=== PATIENT | female | born 1965 | race Caucasian/White ===

== ENCOUNTER 2021-02-27 09:52 | Inpatient (IN) | payer OTHER, SELFPAY ==
[~2021-02-27] VITALS: Ht 154.9 cm; Wt 50.0 kg
[2021-02-27] VITALS (8 sets, daily range): BP systolic 73–111; BP diastolic 38–52
--- NOTE | 2021-02-27 09:52 | NUR ---
Dr. Cole at bedside evaluating patient.
--- NOTE | 2021-02-27 09:52 | NUR ---
Patient BIB [facility] to bed 6 at this time.
[2021-02-27] MEDS ORDERED: OCTREOTIDE ACETATE 100 MCG/ML VIAL IV STA (09:54)
[2021-02-27] MEDS ORDERED: METOCLOPRAMIDE 10 MG/2 ML INJ VIAL IVP ONE (09:55)
[2021-02-27] MEDS ORDERED: PANTOPRAZOLE 40 MG INJ VIAL IVP ONE (09:55)
[2021-02-27] MEDS ORDERED: cefTRIAXone 2,000 MG in DEXTROSE 5% 100 ML IV ONE (09:55)
[2021-02-27] MEDS ORDERED: cefTRIAXone 2,000 MG VIAL ONE (10:28)
[2021-02-27] MEDS ORDERED: NACL 0.9% 2,000 ML IV ONE (10:30)
--- NOTE | 2021-02-27 10:46 | NUR ---
55 Y/O FEMALE BIBA FROM HOME C/O VOMITING BLOOD AND DARK TARRY STOOLS X2DAYS. PT REPORTS SHE HAS BEEN VOMITING X2 WEEKS BUT ONLY BLOOD X2 DAYS. PT PRESENTS JAUNDICE, PALE, AND COOL TO TOUCH. PT IS SHIVERING. PT REPORTS BEING A HEAVY DRINKER IN PAST BUT HAS SINCE STOPPED. PT REPORTS ABDOMINAL DISTENTION PRIOR TO COMING, NO DISTENTION NOTED AT THIS TIME. ABD IS FLAT, SOFT, AND TENDER ON PALPATION, EPIGASTIC REGION. EYES ARE YELLOW TINGED. DENIES PAIN AT THIS TIME, ONLY COLD AND THIRSTY. PT A/O X4 WITH EVEN AND UNLABORED RESPIRATIONS. PT PLACED IN GOWN PROVIDED WITH WARM BLANKETS. PT ATTACHED TO COREROOM FOUNDRY LABORER. PMH:HEP C ALLERGIES:DENIES
[2021-02-27 10:52] LABS: BASOPHILS % (AUTO) 0.3 % (0.0-2.0); EOSINOPHILS % (AUTO) 0.1 % (0.0-4.0); HEMATOCRIT 20.4 % (36-48); LYMPHOCYTES # (AUTO) 2.4 K/uL (2.5-16.5); LYMPHOCYTES % (AUTO) 14.9 % (20.5-51.1); MEAN CORPUSCULAR HEMOGLOBIN 33 pg (27-31); MEAN CORPUSCULAR HGB CONC 33 g/dL (33-37); MEAN CORPUSCULAR VOLUME 98.7 fL (80-94); MONOCYTES # (AUTO) 1.2 K/uL (0.8-1.0); MONOCYTES % (AUTO) 7.3 % (1.7-9.3); NEUTROPHILS # (AUTO) 12.2 K/uL (1.8-7.7); NEUTROPHILS % (AUTO) 77.4 % (42.2-75.2); PLATELET COUNT (AUTO) 128 K/uL (140-450); RED BLOOD CELL COUNT(AUTO) 2.06 MIL/uL (4.20-5.40); RED CELL DISTRIBUTION WIDTH 16.7 % (11.6-13.7); WHITE BLOOD COUNT (AUTO) 15.8 K/uL (4.8-10.8)
[2021-02-27 10:58] LABS: HEMOGLOBIN 6.7 g/dL (12.0-16.0)
[2021-02-27 11:08] LABS: PROTHROMBIN TIME 20.2 secs (10.8-13.4)
[2021-02-27] MEDS ORDERED: OCTREOTIDE ACETATE 100 MCG/ML VIAL ONE (11:13)
--- NOTE | 2021-02-27 11:37 | NUR ---
XRAY AT BEDSIDE TO VERIFY NG TUBE PLACEMENT
--- NOTE | 2021-02-27 11:45 | NUR ---
GAVE REPORT TO ASHLEY RN, TRANSFER OF CARE AT THIS TIME.
--- NOTE | 2021-02-27 11:45 | NUR ---
Report and continuation of care received from KAITY Sullivan.
--- NOTE | 2021-02-27 11:50 | NUR ---
Received patient who reports vomiting blood x 1 day. States >10 episodes that began as clear, progressed to bright red blood and then coffee-ground emesis. Pt also reports abdominal distention 5/10, pressure/constant, non-radiating that alleviated with vomiting episodes. Denies dysuria, CP, SOB, cough, constipation. Reports last BM: yesterday, "tarry stool." PMH: liver cirrhosis, hep C Meds: lasix, spirolactone, vitamin D3
[2021-02-27] MEDS: PANTOPRAZOLE 80 MG in NACL 0.9% 100 ML IVP SCH ×2 (12:05→19:44)
[2021-02-27] MEDS: OCTREOTIDE ACETATE 1.25 MG in NACL 0.9% 250 ML IV SCH (12:05)
--- NOTE | 2021-02-27 12:20 | NUR ---
BP 78/47, Dr. Cole made aware states to start 1L NS BOLUS.
[2021-02-27 12:47] LABS: ANION GAP 30.9 (8-16); CARBON DIOXIDE 15.1 mmol/L (21-32); CREATININE 2.6 mg/dL (0.6-1.3)
[2021-02-27 12:53] LABS: ALBUMIN 2.2 g/dL (3.4-5.0); TOTAL BILIRUBIN 1.4 mg/dL (0.0-1.0)
--- NOTE | 2021-02-27 12:55 | NUR ---
Son at bedside. BP at this time 99/47
--- NOTE | 2021-02-27 13:20 | NUR ---
# 16 FR Ramires catheter with 10 ml utilizing sterile technique. Immediate return of 55 ml clear/yellow urine noted. Bedside drainage bag placed below level of bladder. Urine sample collected and sent to lab. Pt tolerated procedure well.
--- NOTE | 2021-02-27 14:12 | NUR ---
Tex Xie (BROTHER- POC)
[2021-02-27] MEDS ORDERED: NACL 0.9% 1,000 ML IV ONE (14:15)
[2021-02-27] MEDS ORDERED: SPIR25TA PO (14:26)
[2021-02-27] MEDS ORDERED: FURO-572 PO (14:26)
[2021-02-27] MEDS ORDERED: DEXT 5% / NACL 0.45% 1,000 ML IV ONE (14:35)
--- NOTE | 2021-02-27 14:40 | NUR ---
800cc of coffee ground emesis removed via gastric suction
--- NOTE | 2021-02-27 14:42 | NUR ---
280cc clear/gio urine removed from Ramires catheter.
--- NOTE | 2021-02-27 14:49 | NUR ---
Report given to KAITY Mcleod
--- NOTE | 2021-02-27 14:58 | NUR ---
Pt transferred to ICU via BED WITH KAITY RAMIREZ .
[2021-02-27] MEDS ORDERED: LORazepam 2 MG/ML VIAL IVP PRN (15:00)
[2021-02-27] MEDS ORDERED: ACETAMINOPHEN 325 MG TAB PO PRN (15:00)
[2021-02-27] MEDS ORDERED: ZOLPIDEM 10 MG TAB PO PRN (15:00)
[2021-02-27] MEDS ORDERED: MAG SULF 2000 MG/WATER PREMIX 50 ML IV PRN (15:00)
[2021-02-27] MEDS ORDERED: DOCUSATE SODIUM 100 MG GELCAP PO PRN (15:00)
[2021-02-27] MEDS ORDERED: MORPHINE SULFATE 2 MG/ML SYR IVP PRN (15:00)
[2021-02-27] MEDS ORDERED: POTASSIUM CHLORIDE 10 MEQ TABER PO PRN (15:00)
--- NOTE | 2021-02-27 15:10 | NUR ---
Patient will be admitted to care of Dr. Donaldson. Admited to ICU. Will go to room ICU-4. Belongings list completed. Report to KAITY Mcleod
--- NOTE | 2021-02-27 15:15 | NUR ---
RECEIVED PATIENT FROM ER NURSE VIA CANDY. PT ADMITTED FOR GI BLEED. PT IS AOX4, ABLE TO MAKE NEEDS KNOWN. RESPIRATIONS EVEN AND UNLABORED. ON ROOM AIR AND NO DISTRESS NOTED. SKIN IS WARM, DRY, AND INTACT. NOTED JAUNDICE SKIN. IV SITES ON RAC 18G, LAC 18G, AND LFA 18G. INTACT AND PATENT. INFUSING SANDOSTATIN @ 10 ML/HR AND PROTONIX DRIP @ 10ML/HR. ABD IS SOFT, FLAT, DISTENDED. BOWEL SOUNDS ACTIVE IN ALL QUADRANTS. NG TUBE IN RIGHT NARE IN PLACE. ON LOW INTERMITTENT SUCTION. LIANG CATH IN PLACE DRAINING CLEAR YELLOW BY GRAVITY. PATIENT DENIES PAIN AT THE MOMENT. PLAN OF CARE DISCUSSED. SAFETY PRECAUTIONS IN PLACE. CALL LIGHT WITHIN REACH. WILL CONTINUE TO MONITOR.
--- NOTE | 2021-02-27 16:58 | NUR ---
DR PIERRE AT BEDSIDE. ORDERED D51/2NS BOLUS 500ML THEN 100ML/HR AFTER. PT FOR EGD TONIGHT OR TOMORROW. CONSENT SECURED AND SIGNED.
--- NOTE | 2021-02-27 17:14 | NUR ---
PATIENT WITH 1 BM OF BLACK, TARRY STOOL AT THIS TIME
[2021-02-27 19:10] LABS: BASOPHILS # (AUTO) 0.1 K/uL (0.00-0.22); BASOPHILS % (AUTO) 0.4 % (0.0-2.0); EOSINOPHILS % (AUTO) 0.1 % (0.0-4.0); LYMPHOCYTES # (AUTO) 1.7 K/uL (2.5-16.5); LYMPHOCYTES % (AUTO) 11.7 % (20.5-51.1); MEAN CORPUSCULAR HEMOGLOBIN 33 pg (27-31); MEAN CORPUSCULAR HGB CONC 32 g/dL (33-37); MEAN CORPUSCULAR VOLUME 101.1 fL (80-94); MONOCYTES # (AUTO) 1.1 K/uL (0.8-1.0); MONOCYTES % (AUTO) 7.5 % (1.7-9.3); NEUTROPHILS # (AUTO) 11.8 K/uL (1.8-7.7); NEUTROPHILS % (AUTO) 80.3 % (42.2-75.2); PLATELET COUNT (AUTO) 107 K/uL (140-450); RED BLOOD CELL COUNT(AUTO) 1.69 MIL/uL (4.20-5.40); RED CELL DISTRIBUTION WIDTH 17.6 % (11.6-13.7); WHITE BLOOD COUNT (AUTO) 14.7 K/uL (4.8-10.8)
--- NOTE | 2021-02-27 19:10 | NUR ---
MRSA SWAB DONE. WALKED TO LAB
--- NOTE | 2021-02-27 19:14 | NUR ---
REPORT GIVEN TO KAITY RICK. ALL CARES TRANSFERRED AT THIS TIME.
--- NOTE | 2021-02-27 19:20 | NUR ---
ASSUMED CARE OF PT.INITIAL ASSESSMENT COMPLETED.PT AWAKE ALERT AND ORIENTED X4.ON ROOM AIR.NO SOB NOTED.ST NOTED ON MONITOR.W/NGT TO RT NARES TO LOW INTERMITTENT SUCTION, BROWNISH SECRETIONS NOTED.SMALL AMT.SMALL BLOODY RED OUTPUT ALSO WHEN SPITS.MAINTAINED ON NPO.W/PERIPHERAL IV TO LT AC G18 INTACT INFUSING SANDOSTATIN DRIP AT 10ML/HR, LT WRIST G18 INTACT INFUSING PROTONIX DRIP AT 8ML/HR AND IV TO RT AC G18 INTACT INFUSING ORDERED IVF AT 100ML/HR.W/LIANG CATHETER TO BSD DRAINING SMALL LAMT OF YELLOW URINE.SKIN INTACT,JAUNDICED.ABLE TO MOVE ALL EXTREMITIES.DENIES PAIN AT THIS TIME
[2021-02-27 19:33] LABS: HEMATOCRIT 17.1 % (36-48); HEMOGLOBIN 5.6 g/dL (12.0-16.0)
[2021-02-27] MEDS ORDERED: diphenhydrAMINE 50 MG/ML VIAL ONE (19:39)
[2021-02-27] MEDS ORDERED: MIDAZOLAM 5 MG/5 ML VIAL ONE (19:39)
[2021-02-27] MEDS ORDERED: fentaNYL citrate 0.05 MG/ML VIAL ONE (19:39)
[2021-02-27] MEDS ORDERED: PANTOPRAZOLE 40 MG INJ VIAL ONE (19:42)
[2021-02-27] MEDS: DEXT 5% / NACL 0.45% 1,000 ML IV SCH (19:44)
--- NOTE | 2021-02-27 20:00 | NUR ---
ONGOING EGD WITH DR PIERRE. PHYSICIAN AWARE THAT PT DID NOT RECEIVE BLOOD TRANSFUSION YET, BLOOD NOT READY PER LAB
[2021-02-27] MEDS ORDERED: NACL 0.9% 500 ML IV ONE ×2 (20:25)
--- NOTE | 2021-02-27 20:55 | NUR ---
STARTED ON 1 UNIT PRBC TRANSFUSION ORDERED.W/SIGNED CONSENT; VERIFIED W/KAITY ZAIDI. WILL CONTINUE TO CLOSELY MONITOR PT
[2021-02-27] MEDS ORDERED: PIPERACILLIN/TAZOBACTAM 2.25 GM in DEXTROSE 5% 50 ML IV SCH (21:00)
[2021-02-27] MEDS ORDERED: PIPERACILLIN/TAZOBACTAM 2.25 GM VIAL IV ONE (21:07)
--- NOTE | 2021-02-27 21:16 | NUR ---
EGD COMPLETED.PT TOLERATING PROCEDURE; PER MD TO GIVE 500ML BOLUS NS AND ORDER 1 MORE UNIT PRBC AND ZOSYN 2.25GM Q 8HRS; MAINTAIN PT ON NPO; MAY GIVE A LITTLE BIT OF ICE/WATER.DR PIERRE ALSO REMOVED THE NGT AND SAID NOT TO INSERT ANY NGT.
[2021-02-27] MEDS ORDERED: fentaNYL citrate 0.05 MG/ML VIAL IVP ONE (21:35)
[2021-02-27] MEDS ORDERED: MIDAZOLAM 2 MG/2 ML VIAL IVP ONE (21:35)
[2021-02-27] MEDS ORDERED: MIDAZOLAM 2 MG/2 ML VIAL IVP SCH (21:41)
[2021-02-27] MEDS ORDERED: fentaNYL citrate 0.05 MG/ML VIAL IVP SCH (21:41)
--- NOTE | 2021-02-27 22:57 | NUR ---
STILL WITH ONGOING BLOOD TRANSFUSION; NO ALLERGIC REACTIONS NOTED AT THIS TIME.WILL CONTINUE TO CLOSELY MONITOR PT
--- NOTE | 2021-02-27 23:45 | NUR ---
PRBC TRANSFUSION COMPLETED.NO UNTOWARD REACTIONS NOTED.PT DENIES PAIN. AFEBRILE
[2021-02-28] VITALS (10 sets, daily range): BP systolic 89–113; BP diastolic 46–71
[2021-02-28] MEDS: PIPERACILLIN/TAZOBACTAM 2.25 GM in DEXTROSE 5% 50 ML IV SCH ×4 (00:35→20:46)
--- NOTE | 2021-02-28 01:22 | NUR ---
PT ALERT AND ORIENTED.TAKING SMALL ICE CHIPS, TOLERATED,DENIES N/V.DENIES PAIN
--- NOTE | 2021-02-28 02:30 | NUR ---
PT ASLEEP;EASILY AROUSABLE.DENIES PAIN.NO ACTIVE BLEEDING NOTED AT THIS TIME
[2021-02-28] MEDS ORDERED: PIPERACILLIN/TAZOBACTAM 2.25 GM VIAL IV ONE (02:56)
[2021-02-28] MEDS: DEXT 5% / NACL 0.45% 1,000 ML IV SCH ×2 (05:50→15:05)
[2021-02-28] MEDS ORDERED: PANTOPRAZOLE 40 MG INJ VIAL ONE (06:00)
[2021-02-28] MEDS: PANTOPRAZOLE 80 MG in NACL 0.9% 100 ML IVP SCH ×2 (06:13→15:57)
--- NOTE | 2021-02-28 06:26 | NUR ---
PT STILL ASLEEP; 2ND UNIT PRBC TRANSFUSION NOT ADMINISTERED AT THIS TIME, BLOOD NOT READY PER LAB DAI.DENIES PAIN.NO VOMITING NOTED.NO BM NOTED AT THIS TIME
[2021-02-28 06:49] LABS: EOSINOPHILS # (AUTO) 0.1 K/uL (0-0.4); LYMPHOCYTES # (AUTO) 1.4 K/uL (2.5-16.5); NEUTROPHILS # (AUTO) 7.1 K/uL (1.8-7.7); RED BLOOD CELL COUNT(AUTO) 2.12 MIL/uL (4.20-5.40); WHITE BLOOD COUNT (AUTO) 9.7 K/uL (4.8-10.8)
[2021-02-28 07:24] LABS: BASOPHILS % (AUTO) 0.5 % (0.0-2.0); EOSINOPHILS % (AUTO) 1.3 % (0.0-4.0); LYMPHOCYTES % (AUTO) 14.8 % (20.5-51.1); MEAN CORPUSCULAR HEMOGLOBIN 32 pg (27-31); MEAN CORPUSCULAR HGB CONC 35 g/dL (33-37); MONOCYTES % (AUTO) 10.6 % (1.7-9.3); NEUTROPHILS % (AUTO) 72.8 % (42.2-75.2); PLATELET COUNT (AUTO) 59 K/uL (140-450); RED CELL DISTRIBUTION WIDTH 17.3 % (11.6-13.7)
--- NOTE | 2021-02-28 07:30 | NUR ---
RECEIVED REPORT FROM NEON SIGN MAKER NURSE. AOX4, ABLE TO MAKE NEEDS KNOWN. RESPIRATIONS EVEN AND UNLABORED. ON ROOM AIR AND NO DISTRESS NOTED. SKIN IS INTACT. IV SITES ON RAC 18G, LAC 18G, AND LFA 18G. INTACT AND PATENT. INFUSING SANDOSTATIN @ 10 ML/HR AND PROTONIX DRIP @ 10ML/HR, D5 1/2NS AT 100C/HR. LIANG CATH IN PLACE DRAINING CLEAR YELLOW BY GRAVITY. PATIENT DENIES PAIN AT THE MOMENT. PLAN OF CARE DISCUSSED. SAFETY PRECAUTIONS IN PLACE. CALL LIGHT WITHIN REACH. WILL CONTINUE TO MONITOR.
[2021-02-28 07:34] LABS: ANION GAP 9.6 (8-16); CARBON DIOXIDE 25.4 mmol/L (21-32); CREATININE 1.7 mg/dL (0.6-1.3)
[2021-02-28 07:44] LABS: HEMATOCRIT 19.7 % (36-48); HEMOGLOBIN 6.8 g/dL (12.0-16.0)
--- NOTE | 2021-02-28 09:30 | NUR ---
DR PIERRE AT BEDSIDE. ORDERS NOTED AND CARRIED OUT
[2021-02-28] MEDS: OCTREOTIDE ACETATE 1.25 MG in NACL 0.9% 250 ML IV SCH (09:55)
--- NOTE | 2021-02-28 10:00 | NUR ---
PT'S MOTHER AND BROTHER AT BEDSIDE, UPDATE GIVEN
[2021-02-28] MEDS ORDERED: SUCRALFATE 1 GM TAB ONE (11:59)
--- NOTE | 2021-02-28 12:00 | NUR ---
PT IN BED EATING LUNCH. ON FULL LIQUID DIET TOLERATED WELL
[2021-02-28] MEDS: SUCRALFATE 1 GM TAB PO SCH ×3 (12:12→20:45)
--- NOTE | 2021-02-28 13:00 | NUR ---
PRBC ORDER FOLLOWED UP WITH BLOOD BANK, BLOOD WILL BE DELIVERED AND READY LATER AFTERNOON
--- NOTE | 2021-02-28 15:16 | NUR ---
WITH C/O ABD PAIN 07/31, AND C/O BLOATING, MORPHINE GIVEN ORDERED
--- NOTE | 2021-02-28 18:00 | NUR ---
PT IN BED ASSISTED WITH DINNER, NO SOB, NO C/O PAIN
--- NOTE | 2021-02-28 19:30 | NUR ---
ASSUMED CARE OF PT.INITIAL ASSESSMENT COMPLETED.PT AWAKE ALERT AND ORIENTED.SR ON MONITOR.ON ROOM AIR.DENIES SOB.W/PERIPHERAL IV TO LT AG G18 INFUSING ORDERED IVF AND LT WRIST G18 INFUSING PROTONIX DRIP AT 8MG/HR AND SANDOSTATIN DRIP AT 10ML/HR.PT ON FULL LIQUID DIET.W/LIANG CATHETER TO BSD DRAINING SMALL AMT OF YELLOW URINE.DENIES PAIN.SKIN STILL JAUNDICED AND INTACT.PT ABLE TO SELF TURN, CALL LIGHT WITHIN REACH.BED IN LOW POSITION.
[2021-02-28] MEDS: ONDANSETRON 4 MG/2 ML VIAL IVP PRN (20:48)
--- NOTE | 2021-02-28 20:48 | NUR ---
pt c/o nausea; zofran administered as ordered
--- NOTE | 2021-02-28 22:00 | NUR ---
ORDERED TO TRANSFUSE 1 UNIT PRBC, BLOOD AVAILABLE, VERIFIED WITH KAITY CHAVIRA; WILL CONTINUE TO CLOSELY MONITOR PT.
--- NOTE | 2021-02-28 23:31 | NUR ---
PT AWAKE; STILL WITH ONGOING PRBC TRANSFUSION.DENIES PAIN AND ITCHINESS, VERBALIZED "FEELING A LOT BETTER".
[2021-03-01] VITALS: BP 122/57
--- NOTE | 2021-03-01 01:00 | NUR ---
PRBC TRANSFUSION 1 UNIT COMPLETED.NO ADVERSE REACTIONS NOTED; PT ALERT AND ORIENTED, ON ROOM AIR.PT DENIES PAIN,ITCHINESS AND SHORTNESS OF BREATH.
[2021-03-01] MEDS ORDERED: PANTOPRAZOLE 40 MG INJ VIAL ONE (02:01)
[2021-03-01] MEDS: PANTOPRAZOLE 80 MG in NACL 0.9% 100 ML IVP SCH ×3 (02:10→21:40)
--- NOTE | 2021-03-01 03:00 | NUR ---
PT TRANSFERRED TO [facility] ROOM 104 B IN STABLE CONDITION.ALERT AND ORIENTED.ON ROOM AIR.NO SOB.DENIES N/V.DENIES PAIN. REPORT GIVEN TO JOSEMANUEL BRICENO Addendum: 03/01/21 at 0337 by Karol Stone RN V/S HR 83 BP 113/59 02SAT 95% RR 12
[2021-03-01 04:00] VITALS: BP 124/58
[2021-03-01] MEDS: PIPERACILLIN/TAZOBACTAM 2.25 GM in DEXTROSE 5% 50 ML IV SCH ×3 (05:00→21:38)
--- NOTE | 2021-03-01 06:26 | NUR ---
PATIENT TO [id number] AWAKE ALERT NO C/O. ON ROOM AIR SAT 98% PATIENT SINUS TEMP 98.2 PATIENT HAS F/C DRAINING YELLOW URINE. PATIENT HAS SAND DOSTATIN 10MG HOUR. PROTONIX 10 MG. D51/2 NS 100 HOUR SITE LEFT UPPER ARM 18 GA LOWER ARM WRIST 18 GA. BOTH PATIENT NO VOMITING PATIENT H/H 6.8 GIVEN 1 UNIT P.R.B.C 02/28/21. NO C/0 OF PAIN.
[2021-03-01 07:19] LABS: BASOPHILS # (AUTO) 0.1 K/uL (0.00-0.22); EOSINOPHILS # (AUTO) 0.2 K/uL (0-0.4); HEMATOCRIT 24.6 % (36-48); HEMOGLOBIN 8.5 g/dL (12.0-16.0); LYMPHOCYTES # (AUTO) 0.7 K/uL (2.5-16.5); LYMPHOCYTES % (AUTO) 10.4 % (20.5-51.1); MEAN CORPUSCULAR HEMOGLOBIN 32 pg (27-31); MEAN CORPUSCULAR HGB CONC 35 g/dL (33-37); MEAN CORPUSCULAR VOLUME 91.1 fL (80-94); MONOCYTES # (AUTO) 0.6 K/uL (0.8-1.0); MONOCYTES % (AUTO) 9.2 % (1.7-9.3); NEUTROPHILS % (AUTO) 76.4 % (42.2-75.2); PLATELET COUNT (AUTO) 48 K/uL (140-450); RED CELL DISTRIBUTION WIDTH 17.6 % (11.6-13.7); WHITE BLOOD COUNT (AUTO) 6.5 K/uL (4.8-10.8)
[2021-03-01 07:25] LABS: ANION GAP 10.4 (8-16); CARBON DIOXIDE 25.1 mmol/L (21-32); CREATININE 1.6 mg/dL (0.6-1.3); POTASSIUM 3.5 mmol/L (3.5-5.1)
--- NOTE | 2021-03-01 07:30 | NUR ---
RECEIVED REPORT FROM PAINTER RAILROAD CAR NURSE FOR CONTINUITY OF CARE. PT SLEEPING IN BED. BREATHING SYMMETRICAL. LIANG CATHETER INTACT AND PATENT, DRAINING YELLOW URINE. ALL SAFETY MEASURES IN PLACE.
[2021-03-01 08:00] VITALS: BP 95/54
[2021-03-01] MEDS: SUCRALFATE 1 GM TAB PO SCH ×4 (08:17→21:39)
--- NOTE | 2021-03-01 08:17 | NUR ---
SCHEDULED AM MEDICATION GIVEN. DENIES PAIN AT THIS TIME.
[2021-03-01] MEDS: DEXT 5% / NACL 0.45% 1,000 ML IV SCH ×3 (08:58→21:55)
--- NOTE | 2021-03-01 09:44 | NUR ---
PT CODE STATUS ORDERED PER MD.
[2021-03-01] MEDS: FUROSEMIDE 20 MG TAB PO SCH ×2 (09:48→21:39)
[2021-03-01] MEDS: OCTREOTIDE ACETATE 1.25 MG in NACL 0.9% 250 ML IV SCH (09:55)
--- NOTE | 2021-03-01 10:22 | NUR ---
PATIENT HAS BEEN SCREENED AND CATEGORIZED HIGH NUTRITION RISK. PATIENT WILL BE SEEN WITHIN 1-2 DAYS OF ADMISSION. 03/01/[address]
[2021-03-01 12:00] VITALS: BP 93/57
--- NOTE | 2021-03-01 13:01 | NUR ---
PT IN BED, AWAKE A/OX4. RESPIRATION EVEN AND UNLABORED. DENIES PAIN AT THIS TIME. SCHEDULED PM MEDICATIONS GIVEN PER MD ORDER.
--- NOTE | 2021-03-01 14:28 | NUR ---
03/01/2021 RD INITIAL ASSESSMENT COMPLETED PLEASE REFER TO NUTRITION ASSESSMENT UNDER CARE ACTIVITY FOR ESTIMATED NUTRITIONAL NEEDS. CONTINUE CURRENT DIET, ADVANCE TO REGULAR TOLERATED MAY CONSIDER ENSURE TID IN PO INTAKE DOES NOT IMPROVE WITHIN [address] TO FOLLOW-UP IN 3-5 DAYS PATIENT IS MODERATE RISK. TRU FLORES, RD
--- NOTE | 2021-03-01 15:41 | NUR ---
PT DOWNGRADED TO MED-SURG. TELE BOX REMOVED. NO S/S OF DISTRESS. CALL LIGHT IN REACH. ALL SAFETY MEASURES IN PLACE
--- NOTE | 2021-03-01 16:55 | NUR ---
SCHEDULED PM MEDICATION GIVEN PER MD ORDER. PT PULLED OUT HER LEFT AC IV LINE, NO SWELLING/BLEEDING NOTED. NO ACTIVE BLEEDING. CALL LIGHT PLACED WITHIN EASY REACH.
--- NOTE | 2021-03-01 18:30 | NUR ---
PT IN BED, AWAKE. RESPIRATION EVEN AND UNLABORED. LIANG CATHETER INTACT AND PATENT DRAINING YELLOW URINE. DENIES PAIN AT THIS TIME. CALL LIGHT PLACED WITHIN REACH. ALL SAFETY MEASURES IN PLACE.
--- NOTE | 2021-03-01 19:32 | NUR ---
ENDORSED PT TO POWERPLANT OPERATOR NURSE, PT IN NO DISTRESS.
[2021-03-02 00:03] VITALS: BP 99/50
[2021-03-02] MEDS: PIPERACILLIN/TAZOBACTAM 2.25 GM in DEXTROSE 5% 50 ML IV SCH (04:43)
[2021-03-02] MEDS: DEXT 5% / NACL 0.45% 1,000 ML IV SCH (05:59)
[2021-03-02 07:46] LABS: BASOPHILS % (AUTO) 0.6 % (0.0-2.0); EOSINOPHILS # (AUTO) 0.2 K/uL (0-0.4); EOSINOPHILS % (AUTO) 2.3 % (0.0-4.0); HEMATOCRIT 25.2 % (36-48); HEMOGLOBIN 8.7 g/dL (12.0-16.0); LYMPHOCYTES % (AUTO) 11.5 % (20.5-51.1); MEAN CORPUSCULAR HEMOGLOBIN 32 pg (27-31); MEAN CORPUSCULAR HGB CONC 35 g/dL (33-37); MEAN CORPUSCULAR VOLUME 91.4 fL (80-94); MONOCYTES # (AUTO) 0.8 K/uL (0.8-1.0); MONOCYTES % (AUTO) 9.9 % (1.7-9.3); NEUTROPHILS # (AUTO) 6.4 K/uL (1.8-7.7); NEUTROPHILS % (AUTO) 75.7 % (42.2-75.2); PLATELET COUNT (AUTO) 58 K/uL (140-450); RED BLOOD CELL COUNT(AUTO) 2.76 MIL/uL (4.20-5.40); RED CELL DISTRIBUTION WIDTH 17.6 % (11.6-13.7); WHITE BLOOD COUNT (AUTO) 8.5 K/uL (4.8-10.8)
[2021-03-02 07:58] LABS: ANION GAP 11.1 (8-16); CARBON DIOXIDE 24.1 mmol/L (21-32); CREATININE 1.6 mg/dL (0.6-1.3); POTASSIUM 3.2 mmol/L (3.5-5.1)
[2021-03-02 08:00] VITALS: BP 99/60
--- NOTE | 2021-03-02 08:08 | NUR ---
RECEIVED REPORT FROM BOTTLER HELPER NURSE FOR CONTINUITY OF CARE. PT IN BED. BREATHING SYMMETRICAL UNLABORED, PATIENT IS AX4 ON ROOM AIR IV IN LEFT ARM INFUSING MD ORDER, FAMILY MEMBER NXT TO BEDSIDE, ASKED [employer] ALL QUESTIONS WERE ANSWERED, CALL LIGHT WITHIN REACH ALL SAFETY MEASURES IN PLACE.
[2021-03-02] MEDS: FUROSEMIDE 20 MG TAB PO SCH (08:39)
[2021-03-02] MEDS: SUCRALFATE 1 GM TAB PO SCH (08:39)
[2021-03-02] MEDS: ONDANSETRON 4 MG/2 ML VIAL IVP PRN (08:48)
--- NOTE | 2021-03-02 08:52 | NUR ---
patient in bed complains about nasuea got medicated as md ayon, got morning medication tolerated well, calls light within reach, all safety measures on place
[2021-03-02] MEDS ORDERED: POTA10TA70 PO (09:20)
[2021-03-02] MEDS ORDERED: MAGN400T61 PO (09:20)
[2021-03-02] MEDS ORDERED: OMEP20EC11 PO (09:21)
[2021-03-02] MEDS: OCTREOTIDE ACETATE 1.25 MG in NACL 0.9% 250 ML IV SCH (09:55)
[2021-03-02] MEDS: PANTOPRAZOLE 80 MG in NACL 0.9% 100 ML IVP SCH (11:26)
--- NOTE | 2021-03-02 11:28 | NUR ---
PATIENT IN BED NO COMPLAIN NO SOD NOTED CALLS LIGHT WITHIN REACH ALL SAFETY MEASURES ON PLACE Addendum: 03/02/21 at 1129 by Lobo Carvajal RN RN PATIENT WILL BE DISCHARGED TODAY
--- NOTE | 2021-03-02 13:00 | NUR ---
PATIENT GETTING DISCHARGE RECEIVED DISCHARGE EDUCATION AND DISCHARGE PACKET, VERBALIZE UNDERSTANDING , IV REMOVED BLEEDING CONTROLLED, SKIN INTACT, LIANG CATHETER REMOVED PATIENT URINATED, ID BAND REMOVED, WALKED TO THE FRONT LOBBY ON A WHEEL CHAIR
== END 2021-03-02 13:15 | disposition home or self-care (01) | DRG 432 ==
LOC: MED 09:52 → MIC 14:39 → MTU 03-01 03:00
PROVIDERS: ADMIT General Practice; ATTEND General Practice
PROC: 30233N1 Transfusion of Nonautologous Red Blood Cells into Peripheral Vein, Percutaneous Approach (ICD-10-PCS; 2021-02-27)
PROC: 06L38CZ Occlusion of Esophageal Vein with Extraluminal Device, Via Natural or Artificial Opening Endoscopic (ICD-10-PCS; principal; 2021-02-28)
DX: K70.31 Alcoholic cirrhosis of liver with ascites (principal); E43 Unspecified severe protein-calorie malnutrition; I85.11 Secondary esophageal varices with bleeding; N17.0 Acute kidney failure with tubular necrosis; R57.1 Hypovolemic shock; B19.20 Unspecified viral hepatitis C without hepatic coma; Z20.822 Contact with and (suspected) exposure to COVID-19; D50.0 Iron deficiency anemia secondary to blood loss (chronic); E83.42 Hypomagnesemia; F17.210 Nicotine dependence, cigarettes, uncomplicated; Z79.899 Other long term (current) drug therapy; Z68.20 Body mass index [BMI] 20.0-20.9, adult
CPT/HCPCS: 36415; 36430; 71045; 76705; 80048; 80053; 83036; 83540; 83735; 85025; 85610; 85730; 86886; 86900; 86901; 86920; 87081; 93005; 96361; 96365; 96375; 99291; C9113; J0696; J1200; J2250; J2270; J2354; J2405; J2543; J2765; J3010; J3475; J7030; J7060; P9016; Q0092